=== PATIENT | male | born 1990 | race Caucasian/White ===

== ENCOUNTER 2017-04-09 11:55 | Emergency (ER) | payer SELFPAY ==
[~2017-04-09] VITALS: Ht 172.7 cm; Wt 68.0 kg
[2017-04-09 12:07] VITALS: BP 129/57
--- NOTE | 2017-04-09 12:13 | NUR ---
PT TRIAGED, AMBULATED TO ER LOBBY WAITING FOR ER BED. ERMD AWARE OF PATIENT STATUS.
--- NOTE | 2017-04-09 14:47 | NUR ---
Patient to OF3 at this time.
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
[2017-04-09] MEDS ORDERED: IBUPROFEN 600 MG TAB PO ONE (15:20)
--- NOTE | 2017-04-09 16:42 | NUR ---
ER MD DR. DONALD REEVALUATING PT AT BEDSIDE.
[2017-04-09 16:53] VITALS: BP 118/69
--- NOTE | 2017-04-09 16:53 | NUR ---
Patient discharged with v/s stable. Written and verbal after care instructions given and explained. Patient alert, oriented and verbalized understanding of instructions. Ambulatory with steady gait. All questions addressed prior to discharge. ID band removed. Patient advised to follow up with PMD. Rx of AZITHROMYCIN given. Patient educated on indication of medication including possible reaction and side effects. Opportunity to ask questions provided and answered.
== END 2017-04-09 16:53 | disposition home or self-care (01) ==
LOC: MED 11:55
DX: J32.9 Chronic sinusitis, unspecified (principal)
CPT/HCPCS: 70486; 99284